=== PATIENT | male | born 1950 | race American Indian/Alaskan Native ===

== ENCOUNTER 2017-08-29 06:00 | Day surgery (SDC) | payer OTHER ==
--- NOTE | 2017-08-24 12:13 | Anesthesia Consultation ---
Anesthesia Consult and Med Hx Date of service: 08/24/17 - Airway Anesthetic Teeth Evaluation: Good ROM Head & Neck: Adequate Mental/Hyoid Distance: Adequate Mallampati Class: Class I Intubation Access Assessment: Good - Pulmonary Exam CTA: Yes - Cardiac Exam Cardiac Exam: RRR - Pre-Operative Health Status ASA Pre-Surgery Classification: ASA2 Proposed Anesthetic Plan: General Nerve Block: interscalene - Pulmonary Hx Smoking: No Hx Sleep Apnea: No (OMER PRE SCREEN HIGH RISK.) - Cardiovascular System Hx Hypertension: Yes (X 1 MONTH) - Central Nervous System Hx Back Pain: Yes (NECK PAIN) - Other Systems Hx Cancer: No
[~2017-08-29 06:00] MED LIST: LACTATED RINGERS 1,000 ML IV SCH; VERSED IV NR
[2017-08-29] MEDS ORDERED: NACL BACTERIOSTATIC INFILTRATI ONE (06:29)
[2017-08-29] MEDS ORDERED: ADRENALIN IV ONE ×2 (06:29→08:35)
[2017-08-29] MEDS ORDERED: NEURONTIN PO SCH (07:08)
[2017-08-29] MEDS ORDERED: DECADRON IV NR (07:11)
[2017-08-29] MEDS ORDERED: MARCAINE 0.5% INFILTRATI NR (07:11)
[2017-08-29] MEDS ORDERED: XYLOCAINE MPF 2% ONE (07:28)
[2017-08-29] MEDS ORDERED: DIPRIVAN 10 MG/ML IV ONE (07:29)
[2017-08-29] MEDS ORDERED: SUBLIMAZE ONE (07:29)
[2017-08-29] MEDS ORDERED: ANCEF/STERILE WATER 2 GM/20 ML IV NR (08:00)
[2017-08-29] MEDS ORDERED: ePHEDrine SULFATE ONE (08:40)
[2017-08-29] MEDS ORDERED: ZOFRAN ONE (09:56)
[2017-08-29] MEDS ORDERED: DECADRON ONE (09:56)
[2017-08-29] MEDS ORDERED: LACTATED RINGERS 1,000 ML ONE (09:56)
--- NOTE | 2017-08-29 09:58 | Short Stay Summary ---
Short Stay Documentation Date of service: 08/29/17 - History H&P: obtained from office - Allergies and Medications Current Medications: Allergies No Known Allergies Allergy (Verified 08/23/17 14:54) Home Medications Medication Instructions Recorded Confirmed Last Taken Type amLODIPine [Norvasc] 5 mg PO DAILY 08/23/17 08/29/17 08/29/17 04:00 History Active Medications Bupivacaine HCl (Marcaine 0.5%) 30 ml INFILTRATI ONCE NR Stop: 08/29/17 15:00 Cefazolin Sodium (Ancef/Sterile Water 2 Gm/20 Ml) 2 gm IV PREOP NR Stop: 08/29/17 23:59 Celecoxib (Celebrex) 200 mg PO PREOP MOHINDER Stop: 08/29/17 23:59 Last Admin: 08/29/17 07:17 Dose: 200 mg Dexamethasone (Decadron) 4 mg IV ONCE NR Stop: 08/29/17 15:00 Gabapentin (Neurontin) 600 mg PO PREOP MOHINDER Stop: 08/29/17 23:59 Last Admin: 08/29/17 07:17 Dose: 600 mg Lactated Ringer's (Lactated Ringers) 1,000 mls @ 100 mls/hr IV DIRECT MOHINDER Last Admin: 08/29/17 06:45 Dose: 100 mls/hr Midazolam HCl (Versed) 2 mg IV PREOP NR Stop: 08/29/17 23:59 Last Admin: 08/29/17 07:45 Dose: 2 mg - Brief post op/procedure progress note Date of procedure: 08/29/17 Pre-op diagnosis: persistent right shoulder pain, acromioclavicular joint arthritis, rotator Post-op diagnosis: other (persistent right shoulder pain, acromioclavicular joint arthritis, large rotator cuff tear) Procedure: right shoulder arthroscopy subacromial decompression, distal clavicle excision, arthroscopic rotator cuff repair Anesthesia: GETA Findings: large rotator cuff repair Surgeon: SARMAD COSTA Meat Loiner: NUBIA KEY III Estimated blood loss: minimal Pathology: none Condition: stable - Hospital course Hospital course: no perioperative complications - Disposition Condition at discharge: Good Disposition: DC-01 TO HOME OR SELFCARE Short Stay Discharge Plan Follow up with: SANDRA PERDOMO MD [Primary Care Provider] - 7 Days
--- NOTE | 2017-08-29 14:40 | Operative Report ---
PREOPERATIVE DIAGNOSES: Persistent right shoulder pain, acromioclavicular joint arthritic changes, large rotator cuff tear. POSTOPERATIVE DIAGNOSES: Persistent right shoulder pain, advanced acromioclavicular joint arthritic changes with a type 3 acromion causing severe impingement upon the rotator cuff, diffuse degenerative wear of the anterior and superior labrum, large rotator cuff tear involving both the supraspinatus as well as infraspinatus tendons with slight retraction. OPERATIVE PROCEDURE: Right shoulder arthroscopy, subacromial decompression, distal clavicle excision, arthroscopic repair of a large rotator cuff tear involving both the supraspinatus and infraspinatus tendons, debridement of degenerative wear of the anterior and superior labrum. SURGEON: Darnell Garcai MD. EQUIPMENT OPERATION INSTRUCTOR: Eliu Hodges MD. PREOPERATIVE ANTIBIOTICS: Ancef 2 grams IV within 1 hour of skin incision. ANESTHESIA: General plus interscalene block to the operative right upper extremity. DVT PROPHYLAXIS: Open toe, thigh compression stockings and SCD pumps to bilateral lower extremities. OPERATIVE INSTRUMENTATION: Four metallic Opus rotator cuff anchors with corresponding #2 Cobraided sutures. OPERATIVE COMPLICATIONS: None. OPERATIVE HISTORY AND PHYSICAL: This is a 67-year-old male, who has had persistent progressive worsening right shoulder pain. The pain has failed to improve despite sense with nonoperative treatment and limits his day-to-day activity. MRI scan was performed, positive for acromioclavicular joint arthritis. This was a rotator cuff tear. The patient's MRI findings and diagnosis were discussed at length. After making sure the patient understood his diagnosis and all his questions were answered. We did discuss treatment alternatives of surgical and nonsurgical including risks and benefits of both. After a long lengthy discussion, the patient opted to proceed with operative intervention. This will entail a right shoulder arthroscopy, subacromial decompression of the carpal excision, arthroscopic possible open rotator cuff repair and surgery as indicated. The risks which were discussed to include not exclusive of infection, blood loss, nerve damage, loss of range of motion, persistent pain. Again, the patient understood all questioning, he wished to proceed with operative intervention. OPERATIVE PROCEDURE: The patient was seen in the preoperative holding room area at which point informed consent was reviewed and appropriate right upper extremity was identified and then marked. Anesthesia then performed interscalene block of the right upper extremity. After confirmation of adequate analgesia on the right upper extremity the patient was then brought back to the operating room, placed supine on the standard operating room table, at which point general anesthesia was administered. An LMA tube was inserted. After confirmation of adequate general anesthesia and checking probe placement of LMA tube we then made sure that all bony prominences were well padded that there are no wrinkles in the compression stockings on bilateral lower extremities and SCD pumps were applied to bilateral lower extremities. The patient then sat up in the beach chair position using the beach chair positioner, which was already in place and his head was secured in nice neutral position. The well left arm was secured in neutral position at the patient's side with the well arm gamez. The head was secured in a nice neutral position as well. The right upper extremity was then examined under anesthesia. The patient was seen to have full range of motion with no evidence of instability. Following examination under anesthesia, the right upper extremity was then prepped and draped in the usual sterile fashion. After prepping and draping, a timeout was called and the appropriate right upper extremity was identified, which again had been marked in the preop holding room area. We began the procedure by first making a standard posterior portal with #15 blade. Once the port was established, a cannula with a blunt trocar was inserted into the intra-articular aspect of the glenohumeral joint. This went without difficulty or damage to articular cartilage. Once in place, the arthroscopic camera was immediately placed in the anterior aspect of the shoulder joint. We established an anterior portal by first inserting an 18-gauge spinal needle between the subscap and bicep tendon under direct arthroscopic visualization. It was confirmed to be in appropriate position, a 15-blade was then to establish anterior portal. Once the portal was established blunt trocar was inserted to widen poor cephalad and arthroscopic probing and diagnostic arthroscopy in the anterior aspect of shoulder joint. The patient had a normal subscapularis tendon and normal middle glenohumeral ligament. The biceps tendon was seen to be intact. Next, the shoulder is normal relation. There was degenerative wear of the anterior and superior labrum. This was gently debrided using a 4.0 meniscal shaver down to a nice smooth stable healthy remaining tissue. There is negative drive-through sign. There was normal articular cartilage of the glenohumeral joint. There was a normal posterior labrum. There were no loose bodies in the axillary recess. Inspection of the biceps tendon showed to be excellent shoulders, normal relation. Inspection of rotator cuff revealed large full thickness tear involving both the supraspinatus as well as infraspinatus tendons with slight retraction. This was a V-shaped tear. The arthroscopic pump was then turned off to make sure there is good hemostasis. Once this was confirmed, a straight full suction from the glenohumeral joint using arthroscopic cannula forms. Arthroscopic instrumentation was removed and then placed in subacromial space. Once in the subacromial space was rather severe sense of subacromial bursitis. A third incision made in the lateral aspect of the shoulder line with distal clavicle well away from axillary nerve. Once the incision was made the blunt trocar was inserted, one in the postoperative arthroscopic probe. Diagnostic arthroscopy there where the patient had extensive subacromial bursitis. This was gently debrided using a 4.0 meniscal shaver. Once completed, the arm was placed through full range of motion under direct arthroscopic visualization with rather severe impingement of the rotator cuff undersurface of the acromion and the distal clavicle. The soft tissue was removed from the surface acromion using Arthrocare ablation wand and was completed, we used the 4.0 hooded barrel bur, we carried out a subacromial decompression in standard fashion from inferior to superior, posterior and anterior making sure not to leave any residual anterior hook. We turned our attention to the distal clavicle was also seen to be arthritic and using 4.0 hooded barrel bur, carried distal clavicle excision to a depth of approximately 6 mm. Once this was completed, the arm was again placed through a full range of motion as well. There was no further impingement of the rotator cuff undersurface of the acromion or the distal clavicle. Once this was completed, we turned our attention back to the rotator cuff tear at the atrophic edge, which was debrided using a series of meniscal punches and the 4.0 meniscal shaver down to nice healthy remaining tissue. We also converted the V-shaped tear into U-shaped tear to make it more manageable. The soft tissue was then removed from rotator cuff footprint of the humeral head. Once completed we then passed four #2 Cobraided sutures in horizontal mattress type fashion. Once these were passed, we then tapped and then inserted rotator cuff anchors using these repaired the rotator cuff back down to the rotator cuff footprint in an anatomic manner. Once completed, we had good excellent repair of the rotator cuff back and rotator cuff footprint. The repair was probed and seen to be stable. There arm was placed a full range of motion with good excellent stability of the repair and there was no impingement of the rotator cuff undersurface of the acromion or distal clavicle. Arthroscopic pump was turned off to make sure there was good hemostasis. Once this was confirmed this fluoroscopically subacromial space using arthroscopic cannula, follows all instrumentation was removed. The 3 portals were then closed with 3-0 nylon in simple fashion. Adaptic, 4 x 4s, ABD, Medipore dressing, Donjoy cryo/blanket, small abduction sling was applied. The patient sat down to the beach chair in the supine position, was awakened from general anesthesia without complications and to the recovery room in stable condition. Standard postop orders were written. JOB# [id number] COLBY/DAVINA
[2017-08-29 14:52] VITALS: BP 148/97
== END 2017-08-29 12:22 | disposition home or self-care (01) ==
LOC: OR 06:00
PROVIDERS: ATTEND Orthopaedic Surgery
DX: M19.011 Primary osteoarthritis, right shoulder (principal); M75.101 Unspecified rotator cuff tear or rupture of right shoulder, not specified as traumatic; I10 Essential (primary) hypertension
CPT/HCPCS: 29824; 29826; 29827; C1713; J0171; J0690; J1100; J2250; J2405; J2704; J3010; J7120